=== PATIENT | male | born 1955 | race Caucasian/White ===

== ENCOUNTER 2022-06-01 14:10 | Observation (INO) | payer BC ==
[~2022-06-01] VITALS: Ht 175.3 cm; Wt 119.7 kg
[2022-06-01] MEDS ORDERED: SODIUM CHLORIDE 0.9% 1000ML 1,000 ML IV STA (14:37)
[2022-06-01] MEDS ORDERED: ALLOPURINOL300 MG PO (14:57)
[2022-06-01] MEDS ORDERED: VITAMIN E400 UNI1 PO (14:57)
[2022-06-01] MEDS ORDERED: AMLODIPINE BESY10 MG PO (14:57)
[2022-06-01] MEDS ORDERED: METOPROLOL SUCC50 MG PO (14:57)
[2022-06-01] MEDS ORDERED: PEPCID20 MG PO (14:57)
[2022-06-01 14:58] LABS: BASOPHILS # (AUTO) 0.1 (0.0-0.1); BASOPHILS % 0.7 % (0.0-1.0); EOSINOPHILS # (AUTO) 0.3 (0.0-0.4); HEMATOCRIT 43.5 % (38.2-49.6); HEMOGLOBIN 14.3 g/dL (14.0-18.0); LYMPHOCYTES # (AUTO) 2.5 (1.0-3.2); LYMPHOCYTES % 29.8 % (18.0-39.1); MEAN CORPUSCULAR HEMOGLOBIN 30.9 pg (28-32); MEAN CORPUSCULAR HGB CONC 32.9 g/dL (31-35); MONOCYTES # (AUTO) 0.6 (0.2-0.8); MONOCYTES % 7.5 % (4.4-11.3); NEUTROPHILS # (AUTO) 4.9 (2.1-6.9); NEUTROPHILS % 57.8 % (38.7-80.0); PLATELET COUNT 214 x10e3/uL (140-360); RED BLOOD COUNT 4.63 x10e6/uL (4.3-5.7); RED CELL DISTRIBUTION WIDTH 13.3 % (11.7-14.4)
[2022-06-01] MEDS ORDERED: CYCLOBENZAPRINE10 MG PO (15:01)
[2022-06-01] MEDS ORDERED: VITAMIN D3125 MCG PO (15:01)
[2022-06-01] MEDS ORDERED: VITAMIN B-121000 MC4 PO (15:01)
[2022-06-01] MEDS ORDERED: ASPIRIN CHEW81 MG PO (15:01)
[2022-06-01] MEDS ORDERED: FISH OIL 1,0001 EAC7 PO (15:01)
[2022-06-01] MEDS ORDERED: VITAMIN C1000 MG PO (15:01)
[2022-06-01] MEDS ORDERED: MELOXICAM7.5 MG PO (15:01)
[2022-06-01 15:09] LABS: INR 1.02; PROTHROMBIN TIME 14.3 seconds (11.9-14.5)
[2022-06-01 15:10] LABS: PARTIAL THROMBOPLASTIN TIME 27.8 seconds (23.8-35.5)
[2022-06-01 15:19] LABS: ALANINE AMINOTRANSFERASE 20 IU/L (0-55); ALBUMIN 4.1 g/dL (3.5-5.0); ALBUMIN/GLOBULIN RATIO 1.1 (0.8-2.0); ALKALINE PHOSPHATASE 107 IU/L (40-150); ANION GAP 14.9 mmol/L (8-16); BLOOD UREA NITROGEN 20 mg/dL (7-26); BUN/CREATININE RATIO 17 (6-25); CALCIUM 9.4 mg/dL (8.4-10.2); CARBON DIOXIDE 25 mmol/L (22-29); CHLORIDE 105 mmol/L (98-107); CREATINE KINASE 26 IU/L (30-200); CREATININE, SERUM 1.17 mg/dL (0.72-1.25); GLUCOSE 127 mg/dL (74-118); POTASSIUM 3.9 mmol/L (3.5-5.1); SODIUM 141 mmol/L (136-145)
[2022-06-01] MEDS ORDERED: ONDANSETRON HCL INJ 2MG/ML 2ML 2 MG/ML VIAL IV PRN (15:30)
[2022-06-01] MEDS ORDERED: SODIUM CHLORIDE 0.9% 1000ML 1,000 ML IV SCH (15:30)
[2022-06-01 15:38] LABS: THYROID STIMULATING HORMONE 1.199 uIU/mL (0.350-4.940)
[2022-06-01] MEDS ORDERED: ASPIRIN 81 MG CHEW TAB PO ONE (16:00)
[2022-06-01 17:00] VITALS: BP 133/76
[2022-06-01] MEDS ORDERED: LORAZEPAM 1 MG TAB PO PRN (18:30)
[2022-06-01 19:28] VITALS: BP 134/72
[2022-06-01 23:55] VITALS: BP 151/82
[2022-06-02 01:25] VITALS: BP 151/82
[2022-06-02] MEDS: SODIUM CHLORIDE 0.9% 1000ML 1,000 ML IV SCH ×2 (02:53→04:37)
[2022-06-02 04:53] VITALS: BP 139/77
[2022-06-02 04:54] LABS: BASOPHILS % 0.6 % (0.0-1.0); EOSINOPHILS # (AUTO) 0.3 (0.0-0.4); HEMATOCRIT 40.1 % (38.2-49.6); HEMOGLOBIN 13.5 g/dL (14.0-18.0); LYMPHOCYTES # (AUTO) 2.5 (1.0-3.2); LYMPHOCYTES % 34.9 % (18.0-39.1); MEAN CORPUSCULAR HEMOGLOBIN 30.8 pg (28-32); MEAN CORPUSCULAR HGB CONC 33.7 g/dL (31-35); MEAN CORPUSCULAR VOLUME 91.6 fL (81-99); MONOCYTES # (AUTO) 0.5 (0.2-0.8); MONOCYTES % 7.5 % (4.4-11.3); NEUTROPHILS # (AUTO) 3.8 (2.1-6.9); NEUTROPHILS % 52.6 % (38.7-80.0); PLATELET COUNT 196 x10e3/uL (140-360); RED BLOOD COUNT 4.38 x10e6/uL (4.3-5.7); RED CELL DISTRIBUTION WIDTH 13.3 % (11.7-14.4)
[2022-06-02 05:18] LABS: ALBUMIN 3.4 g/dL (3.5-5.0); ANION GAP 13.8 mmol/L (8-16); CHOL/HDL RATIO 6.1 (3.9-4.7); CREATININE, SERUM 0.86 mg/dL (0.72-1.25); POTASSIUM 3.8 mmol/L (3.5-5.1)
[2022-06-02 06:07] LABS: CREATINE KINASE 26 IU/L (30-200)
[2022-06-02 08:20] VITALS: BP 137/77
[2022-06-02] MEDS ORDERED: METOPROLOL SUCCINATE 50 MG TAB XL PO SCH (09:00)
[2022-06-02] MEDS ORDERED: FAMOTIDINE 20 MG TAB PO SCH (09:00)
[2022-06-02] MEDS ORDERED: ASPIRIN 81 MG CHEW TAB PO SCH (09:00)
[2022-06-02] MEDS ORDERED: ASPIRIN 81 MG ENTERIC COATED PO SCH (09:00)
[2022-06-02] MEDS ORDERED: MELOXICAM 7.5 MG TAB PO SCH (09:00)
[2022-06-02] MEDS ORDERED: ALLOPURINOL 300 MG TAB PO SCH (09:00)
[2022-06-02] MEDS ORDERED: CYCLOBENZAPRINE HCL 10 MG TAB PO SCH (09:00)
[2022-06-02] MEDS ORDERED: VITAMIN E 400 UNIT CAP PO SCH (09:00)
[2022-06-02] MEDS ORDERED: APIXABAN 5 MG TABLET PO SCH (09:00)
[2022-06-02] MEDS ORDERED: AMLODIPINE BESYLATE 10 MG TAB PO SCH (09:00)
[2022-06-02] MEDS ORDERED: ASCORBIC ACID 500 MG TAB PO SCH (09:00)
[2022-06-02] MEDS ORDERED: LORAZEPAM INJ 2 MG/ML VIAL IV ONE ×2 (10:00→12:00)
[2022-06-02 10:09] VITALS: BP 137/77
[2022-06-02 11:31] VITALS: BP 126/70
[2022-06-02] MEDS ORDERED: LIDOCAINE 1% 10 ML MULTIDOSE VIAL IJ ONE ×2 (13:01→13:17)
[2022-06-02] MEDS ORDERED: SODIUM CHLORIDE 0.9% 100 ML ONE (13:33)
[2022-06-02] MEDS ORDERED: IOPAMIDOL 370 MG/ML 100 ML INFUS..BTL INJ ONE (13:34)
[2022-06-02 15:14] LABS: CREATINE KINASE 24 IU/L (30-200)
[2022-06-02 15:42] VITALS: BP 138/80
== END 2022-06-02 17:52 | disposition home or self-care (01) ==
LOC: ER 14:15 → ERHOLD 15:26 → INTOOBSV 15:26 → MED/SURG 17:04
DX: R55 Syncope and collapse (principal); I48.0 Paroxysmal atrial fibrillation; I10 Essential (primary) hypertension; E78.2 Mixed hyperlipidemia; K21.9 Gastro-esophageal reflux disease without esophagitis; Z87.442 Personal history of urinary calculi; E66.9 Obesity, unspecified; Z68.39 Body mass index [BMI] 39.0-39.9, adult; Z20.822 Contact with and (suspected) exposure to COVID-19; M19.90 Unspecified osteoarthritis, unspecified site
CPT/HCPCS: 0223U; 33285; 36415 ×2; 70450; 70496; 70498; 71045; 80053 ×2; 80061; 82550 ×2; 82553 ×2; 83735; 83880; 84443; 84484 ×2; 85025 ×2; 85610; 85730; 93005; 93306; 93880; 94799 ×2; 99284; C1764; G0378 ×2; J0690; J2060; J7030 ×2; J7050; Q9967

== ENCOUNTER → 2023-08-11 | Outpatient (REF) | payer BC ==
[~2023-08-11] MED LIST: ALLOPURINOL300 MG PO; AMLODIPINE BESY10 MG PO; ASPIRIN CHEW81 MG PO; CYCLOBENZAPRINE10 MG PO; FISH OIL 1,0001 EAC7 PO; MELOXICAM7.5 MG PO; METOPROLOL SUCC50 MG PO; PEPCID20 MG PO; VITAMIN B-121000 MC4 PO; VITAMIN C1000 MG PO; VITAMIN D3125 MCG PO; VITAMIN E400 UNI1 PO
== END ==
LOC: RAD 11:34
PROVIDERS: ATTEND Internal Medicine
DX: N20.0 Calculus of kidney (principal); M54.40 Lumbago with sciatica, unspecified side
CPT/HCPCS: 72100; 74018